=== PATIENT | female | born 1975 | race Caucasian/White ===

== ENCOUNTER 2016-10-22 11:14 | Observation (INO) | payer BC ==
[2016-10-20 09:35] VITALS: BMI 27.9
[~2016-10-22 11:14] MED LIST: DEXAMETHASONE SOD PHOSPHATE 10 MG/ML 1 ML VIAL IV ONE; HEPARIN SODIUM,PORCINE 5,000 UNIT/ML 1 ML VIAL SQ ONE; LIDOCAINE 1% 20 ML VIAL (10MG/ML) FOR IV START INTRADERMA PRN; MIDAZOLAM 2 MG/2 ML VIAL IV PRN; SCOPOLAMINE 1.5MG/72HR PATCH TRANSDERM ONE; ceFAZolin 2 GM in SODIUM CHLORIDE 0.9% 100 ML IVPB ONE
[2016-10-22] MEDS: LACTATED RINGERS 1,000 ML IV SCH ×2 (11:50→14:23)
[2016-10-22] MEDS: ONDANSETRON 4 MG/2 ML VIAL IVP ONE ×2 (12:02→20:25)
--- NOTE | 2016-10-22 14:00 | P.GSHP ---
History of Present Illness H&P Date: 10/22/16 Chief Complaint: Incarcerated we'll hernia 's is a 40-year-old female who presents today for laparoscopic robotic-assisted repair of incarcerated umbilical hernia. Patient developed a tender mass in her umbilicus. - Constitutional Constitutional: Reports as per HPI Past Medical History Additional Past Medical History / Comment(s): umbilical hernia,varicose veins lt leg,freq ls stools History of Any Multi-Drug Resistant Organisms: None Reported Past Surgical History: Cholecystectomy Past Anesthesia/Blood Transfusion Reactions: Motion Sickness Additional Past Anesthesia/Blood Transfusion Reaction / Comment(s): no hx blood transfusion Past Psychological History: No Psychological Hx Reported Smoking Status: Never smoker Past Alcohol Use History: Occasional Past Drug Use History: None Reported - Past Family History Mother Family Medical History: Hypertension Father Family Medical History: No Reported History Medications and Allergies Home Medications Medication Instructions Recorded Confirmed Type Cholecalciferol [Vitamin D3] 1,000 unit PO DAILY 10/20/16 10/22/16 History Allergies Allergy/AdvReac Type Severity Reaction Status Date / Time No Known Allergies Allergy Verified 10/20/16 09:27 Surgical - Exam Vital Signs Temp Pulse Resp BP Pulse Ox 98.4 F 84 16 118/78 100 10/22/16 11:59 10/22/16 11:59 10/22/16 11:59 10/22/16 11:59 10/22/16 11:59 - General well developed, no distress - Eyes PERRL - ENT normal pinna - Neck no masses - Respiratory normal expansion - Cardiovascular Rhythm: regular - Abdomen Abdomen: soft, non tender Hernia: umbilical, incarcerated (Incarcerated umbilical hernia. ) Assessment and Plan Plan: Incarcerated umbilical hernia. We'll perform laparoscopic robotic system repair.
[2016-10-22] MEDS ORDERED: PROPOFOL 10 MG/ML 20 ML VIAL IV ONE (14:25)
[2016-10-22] MEDS ORDERED: fentaNYL (PF) 50 MCG/ML 2 ML AMP ONE (14:25)
[2016-10-22] MEDS ORDERED: NEOSTIGMINE 1 MG/ML 10 ML VIAL ONE (14:25)
[2016-10-22] MEDS ORDERED: SUCCINYLCHOLINE CHLORIDE 100 MG/5 ML SYR IV ONE (14:25)
[2016-10-22] MEDS ORDERED: HYDROmorphone (PF) 1 MG/ML ONE (14:25)
[2016-10-22] MEDS ORDERED: MIDAZOLAM 2 MG/2 ML VIAL ONE (14:25)
[2016-10-22] MEDS ORDERED: LIDOCAINE 1% INJ 10MG/ML (20 ML MDV) ONE (14:25)
[2016-10-22] MEDS ORDERED: KETOROLAC 30 MG/ML 1 ML VIAL ONE (14:25)
[2016-10-22] MEDS ORDERED: GLYCOPYRROLATE 0.2 MG/ML 2 ML VIAL ONE (14:25)
[2016-10-22] MEDS ORDERED: ROCURONIUM BROMIDE 10 MG/ML 10 ML VIAL IV ONE (14:25)
[2016-10-22] MEDS ORDERED: BUPIVACAIN-EPI 0.25%-1:200,000 30 ML VIAL SQ ONE ×2 (14:41→14:48)
[2016-10-22] MEDS ORDERED: LACTATED RINGERS 1,000 ML IV ONE ×2 (15:04→17:55)
--- NOTE | 2016-10-22 15:32 | P.OP ---
Date of Procedure: 10/22/16 Preoperative Diagnosis: Incarcerated umbilical hernia Postoperative Diagnosis: Incarcerated umbilical hernia Procedure(s) Performed: Laparoscopic robotic-assisted repair of incarcerated umbilical hernia Anesthesia: DEEPTI Surgeon: Ricky Crabtree Estimated Blood Loss (ml): 5 Pathology: none sent Condition: stable Disposition: PACU Description of Procedure: Patient's placed the operative table in the supine position. She received general anesthesia. Her abdomen was prepped and draped usual sterile fashion. The skin incision sites were anesthetized 1% local Xylocaine. An 11 blade the skin was incised in the left quadrant and then using a 5 mm trocar under direct visualization the peritoneal Cavity was entered. Upon entering. Cavity the abdomen was then insufflated and after adequate insufflation the laparoscope was placed back through cavity. Next a 8 mm robotic trochars placed in the left lower quadrant and a 12 mm trocar was placed the left lateral position. The initial 5 mm trocar was exchanged for an 8 mm robotic trocar. The patient' s placed the left side up position and then the patient was docked to the robot. The umbilical hernia was visualized. The incarcerated omentum was reduced into the pleural cavity. And then using OV lock suture the fascial defect was repaired. Next an 11 cm round ventral light ST mesh was placed into the. Cavity and 20 the lock suture was used to secure the mesh over top of the repair. The patient was undocked from the robot. The needles were then cut and the withdrawn through the 12 mm trocar site. The fascia of the 12 mm trocar site was closed with 0 Ethibond suture. The skin was closed interrupted 3-0 Monocryl suture. Dermabond dressings was applied. Patient was sent to recovery in stable condition.
[2016-10-22] MEDS: HYDROmorphone 1 MG/ML 1 ML SYRINGE IVP PRN ×6 (15:58→23:00)
[2016-10-22] MEDS ORDERED: HYDROcodone/APAP 7.5-325MG 1 EACH TAB PO ONE (17:03)
[2016-10-22] MEDS ORDERED: HYDROmorphone 1 MG/ML 1 ML SYRINGE IVP ONE (19:30)
[2016-10-22] MEDS ORDERED: HYDROmorphone 1 MG/ML 1 ML SYRINGE IM PRN (19:40)
[2016-10-22] MEDS ORDERED: ONDANSETRON 4 MG/2 ML VIAL IVP PRN (19:43)
[2016-10-22] MEDS: DEXTROSE 5%-0.9% NACL 1,000 ML IV SCH (20:24)
[2016-10-22 20:46] VITALS: RESP 16
[2016-10-23] MEDS: LACTATED RINGERS 1,000 ML IV SCH (02:07)
[2016-10-23] MEDS: HYDROmorphone 1 MG/ML 1 ML SYRINGE IVP PRN ×2 (03:21→07:24)
[2016-10-23] MEDS: DEXTROSE 5%-0.9% NACL 1,000 ML IV SCH (05:39)
[2016-10-23 07:37] VITALS: BP 110/67; PULSE 66; TEMP 98.1
[2016-10-23] MEDS ORDERED: HYDROcodone/APAP 7.5-325MG 1 EACH TAB PO PRN ×2 (10:00→12:14)
--- NOTE | 2016-10-23 14:08 | P.PN ---
Subjective Principal diagnosis: Incarcerated umbilical hernia Patient is a 40-year-old white female who presented for laparoscopic robotic- assisted repair of incarcerated umbilical hernia. Patient tolerated procedure well. Postprocedure, patient was observed to be tachycardic with oxygen saturation 89-90% when sleeping. Patient was admitted for observation overnight for further monitoring. Upon examination, patient is complaining of moderate left lower quadrant incisional pain exacerbated with activity. Denies chills, nausea, vomiting, shortness of breath, or chest pain. Patient has been up ambulating. Patient is urinating without difficulty. Patient is passing flatus without bowel movement. Patient is tolerating a regular diet. Afebrile. Hemodynamically stable. Objective - Vital Signs Vital signs: Vital Signs Temp 98.1 F 10/23/16 07:00 Pulse 66 10/23/16 08:00 Resp 16 10/23/16 08:00 BP 110/67 10/23/16 07:00 Pulse Ox 99 10/23/16 07:00 Intake & Output 10/22/16 10/23/16 10/23/16 18:59 06:59 18:59 Intake Total 3000 1100 Output Total 5 Balance 2995 1100 Weight 83.461 kg Intake: IV 3000 1100 Dextrose 5%-0.9% NaCl 1, 1100 000 ml @ 100 mls/hr IV . Q10H [facility] Rx#:[id number] Output: Estimated Blood Loss 5 Other: Voiding Method Toilet Toilet # Voids 1 1 - Exam GENERAL: Pt awake and alert, well-appearing, well-nourished, and in no acute distress. HEAD: Atraumatic, normocephalic. EYES: Pupils equal, round, and reactive to light, sclera anicteric, conjunctiva are normal. ENT: Moist mucous membranes. LUNGS: Breath sounds clear to auscultation bilaterally. No wheezes, rales, or rhonchi. HEART: Heart S1, S2, no S3 or S4. Regular rate and rhythm. No murmurs, rubs or gallops. ABDOMEN: Soft, mild incisional tenderness, nondistended, normoactive bowel sounds. No guarding, no rebound. No masses or organomegaly appreciated. Laparoscopic surgical incisions dry, intact, no erythema, no purulent drainage. EXTREMITIES: Palpable peripheral pulses. No calf tenderness. NEUROLOGICAL: Pt oriented x 3. PSYCH: Normal mood, normal affect. SKIN: Warm, dry, intact. Assessment and Plan Plan: Impression: 1. Incarcerated umbilical hernia status post laparoscopic robotic-assisted repair of incarcerated umbilical hernia on 10/22/2016. 2. Intractable pain postoperatively, resolved. Plan: Continue to monitor patient. Transition patient to oral pain medication. Increase ambulation. Continue supportive treatment and pain management. Plan for discharge after lunch if patient continues to do well. The above impression and plan have been discussed and directed by Dr. Bowser. Cayetano FERNANDEZ acting as scribe for Dr. Crabtree.
--- NOTE | 2016-10-23 14:12 | P.DS ---
Providers Date of admission: 10/23/16 04:09 Expected date of discharge: 10/23/16 Attending physician: Ricky Crabtree Primary care physician: Carlos Trinitas Hospital Course: Patient is a 40-year-old white female who presented for laparoscopic robotic- assisted repair of incarcerated umbilical hernia. Patient tolerated procedure well. Post procedure, patient was observed to be tachycardic with oxygen saturation 89-90% when sleeping. Patient was admitted for observation overnight for further monitoring. Patient improved significantly with supportive treatment and pain management was deemed stable for discharge to home with close follow-up in the outpatient setting. Discharge diagnoses: 1. Incarcerated umbilical hernia status post laparoscopic robotic-assisted repair of incarcerated umbilical hernia on 10/22/2016. 2. Intractable pain postoperatively, resolved. The above impression and plan have been discussed and directed by Dr. Crabtree. Cayetano FERNANDEZ acting as scribe for Dr. Crabtree. Procedures: Laparoscopic robotic-assisted repair of incarcerated umbilical hernia Patient Condition at Discharge: Good Plan - Discharge Summary New Discharge Prescriptions: HYDROcodone/APAP 7.5-325MG [[place] 7.5] 1 each PO Q4H PRN #60 tab PRN Reason: Pain Discharge Medication List Cholecalciferol [Vitamin D3] 1,000 unit PO DAILY 10/20/16 [History] HYDROcodone/APAP 7.5-325MG [[place] 7.5] 1 each PO Q4H PRN #60 tab 10/22/16 [Rx] Follow up Appointment(s)/Referral(s): Ricky Crabtree MD [STAFF PHYSICIAN] - 10/30/16 3:10 pm Patient Instructions/Handouts: *Surgery [facility] - (Anesthesia) Discharge Instructions Outpatient Surgery Activity/Diet/Wound Care/Special Instructions: no heavy lifting. no driving for 24 hours or while taking pain pills. use incentive spirometry 10 times an hour while awake. ambulate freely. may shower in 24 hours; avoid scrubbing incisions, gently wash abdomen. Discharge Disposition: HOME SELF-CARE
== END 2016-10-23 13:30 | disposition home or self-care (01) ==
LOC: OR 11:14 → 3SUR 20:11 → OR 10-23 04:09 → 3SUR 10-23 04:09
PROVIDERS: ADMIT Surgery; ATTEND Surgery
DX: K42.0 Umbilical hernia with obstruction, without gangrene (principal); R00.0 Tachycardia, unspecified; G89.18 Other acute postprocedural pain; R10.32 Left lower quadrant pain; Z90.49 Acquired absence of other specified parts of digestive tract; Z82.49 Family history of ischemic heart disease and other diseases of the circulatory system
CPT/HCPCS: 49653; 81025; G0378; C1781; J2250; J1644; J1100; J2710; J0690; J2405; J2001; J3010; J1885; J1170 ×2; J0330; J2704; 96374

== ENCOUNTER → 2019-07-08 | Outpatient (CLI) | payer BC ==
--- NOTE | 2019-07-08 11:49 | XR ---
EXAMINATION TYPE: XR abdomen 1V DATE OF EXAM: 07/08/2019 11:20 AM CLINICAL HISTORY: Central abdominal pain and constipation. TECHNIQUE: Single supine KUB image of the abdomen is obtained. COMPARISON: None. FINDINGS: Scattered gas is seen in nondilated small bowel loops. Gas and fecal material is seen in no ndilated colon. There is no abnormal calcification appreciated. Supine technique limits evaluation fo r pneumoperitoneum. The lung bases are clear and the osseous structures are intact. Cholecystectomy c lips are seen. Very minimal dextroscoliosis of the upper lumbar spine. This may be positional. IMPRESSION: No significant colonic fecal stasis radiographically. Nonobstructive bowel gas pattern.
== END | disposition home or self-care (01) ==
LOC: RADXRMAIN 10:52
PROVIDERS: ATTEND Nurse Practitioner Family
DX: K59.00 Constipation, unspecified (principal)
CPT/HCPCS: 74018

== ENCOUNTER → 2024-11-11 | Outpatient (CLI) | payer BC ==
--- NOTE | 2024-11-11 08:35 | MM ---
Reason for Exam: Screening (asymptomatic). Baseline mammogram. Patient History: Menarche at age 14. First Full-Term at age 34. Late child-bearing (after 32). Premenopausal. Last menstrual period: 10/18/2024 Risk Values: Tonya 5 year model risk: 1.2%. NCI Lifetime model risk: 12.7%. Prior Study Comparison: Patient's first Mammogram. Tissue Density: The breasts are heterogeneously dense, which may obscure small masses. Findings: Analyzed By CAD. There is no suspicious group of microcalcifications or new suspicious mass in either breast. Benign-appearing lymph nodes in the axilla. Overall Assessment: Benign, BI-RAD 2 Management: Screening Mammogram of both breasts in 1 year. . Patient should continue monthly self-breast exams. A clinical breast exam by your physician is recommended on an annual basis. This exam should not preclude additional follow-up of suspicious palpable abnormalities. Note on Tonya scores and lifetime risk: 1. A Tonya score greater than 3% is considered moderate risk. If this is the case, consider specialist referral to assess eligibility for a risk reducing agent. 2. If overall lifetime risk for the development of breast cancer is 20% or higher, the patient may qualify for future screening with alternating mammogram and breast MRI. [facility], , 11/11/2024 8:32 AM. Electronically signed and approved by: Dale Spencer M.D. Radiologis
== END | disposition home or self-care (01) ==
LOC: RADMAMWWP 08:03
PROVIDERS: ATTEND Family Medicine
DX: Z12.31 Encounter for screening mammogram for malignant neoplasm of breast (principal); R92.333 Mammographic heterogeneous density, bilateral breasts
CPT/HCPCS: 77067